=== PATIENT | male | born 1935 | race Caucasian/White ===

== ENCOUNTER → 2016-04-10 | Outpatient (CLI) | payer OTHER | LOC: MMPC 09:00 | DX: L21.8 Other seborrheic dermatitis (principal); H57.8 Other specified disorders of eye and adnexa; Z87.2 Personal history of diseases of the skin and subcutaneous tissue | CPT/HCPCS: 99212; G0463 ==

== ENCOUNTER → 2016-04-16 | Outpatient (CLI) | payer OTHER ==
[2016-04-16 10:09] LABS: BILIRUBIN,TOTAL 1.3 mg/dL (0.3-1.2); BUN/CREATININE RATIO 26.92 (6-20); CALCIUM 9.8 mg/dL (8.7-10.7); CREATININE 1.3 mg/dL (0.70-1.50); TOTAL PROTEIN 7.6 g/dL (6.1-8.0)
[2016-04-16 10:32] LABS: LDL CHOLESTEROL,CALCULATED 90.2 mg/dL; URIC ACID 5.6 mg/dl (3.8-8.5)
== END ==
LOC: LAB 09:42
PROVIDERS: ATTEND Internal Medicine
DX: E11.9 Type 2 diabetes mellitus without complications (principal); E78.5 Hyperlipidemia, unspecified; I10 Essential (primary) hypertension; Z12.5 Encounter for screening for malignant neoplasm of prostate
CPT/HCPCS: 36415; 80053; 80061; 82550; 84443; 84550; G0103

== ENCOUNTER → 2016-04-20 | Outpatient (CLI) | payer OTHER | LOC: MMPC 11:11 | PROVIDERS: ATTEND Internal Medicine | DX: E11.9 Type 2 diabetes mellitus without complications (principal); I10 Essential (primary) hypertension; R60.9 Edema, unspecified; E66.9 Obesity, unspecified | CPT/HCPCS: 83037; 99214; G0463 ==

== ENCOUNTER → 2016-07-17 | Outpatient (CLI) | payer OTHER ==
[2016-07-17 12:33] LABS: HEMOGLOBIN A1C 6.91 % (4.2-6.0)
[2016-07-17 13:52] LABS: CREATININE, URINE 54.2 MG/DL (15-500)
== END ==
LOC: LAB 12:08
PROVIDERS: ATTEND Internal Medicine
DX: E11.9 Type 2 diabetes mellitus without complications (principal)
CPT/HCPCS: 36415; 82043; 83036

== ENCOUNTER → 2016-07-20 | Outpatient (CLI) | payer OTHER | LOC: MMPC 11:11 | PROVIDERS: ATTEND Internal Medicine | DX: E11.9 Type 2 diabetes mellitus without complications (principal); D53.9 Nutritional anemia, unspecified; E66.9 Obesity, unspecified; E78.5 Hyperlipidemia, unspecified | CPT/HCPCS: 99214; G0463 ==

== ENCOUNTER → 2016-08-05 | Outpatient (CLI) | payer OTHER | LOC: MMPC 09:00 | DX: H10.32 Unspecified acute conjunctivitis, left eye (principal); L57.0 Actinic keratosis | CPT/HCPCS: 99213; G0463 ==

== ENCOUNTER → 2016-10-14 | Outpatient (CLI) | payer OTHER ==
[2016-10-14 11:29] LABS: BASOPHILS % (AUTO) 2.5 % (0-1); EOSINOPHILS # (AUTO) 0.36 10*3/UL; EOSINOPHILS % (AUTO) 4.5 % (0-8); HEMOGLOBIN 15.3 g/dL (14.0-18.0); MEAN CORPUSCULAR HEMOGLOBIN 34.6 PG (27-31); MEAN CORPUSCULAR HGB CONC 34.8 g/dL (33-37); MEAN CORPUSCULAR VOLUME 99.5 FL (80-90); MEAN PLATELET VOLUME 10.9 FL (7.4-12.2); MONOCYTES # (AUTO) 0.59 10*3/UL (0.3-0.8); MONOCYTES % (AUTO) 7.4 % (5-15); NEUTROPHILS # (AUTO) 5.42 10*3/UL; NEUTROPHILS % (AUTO) 67.7 % (50-80); RED BLOOD COUNT 4.42 10^6/uL (4.70-6.10)
[2016-10-14 11:34] LABS: PLATELET MORPHOLOGY COMMENT NORMAL MORPHOLOGY (NORM); RBC MORPHOLOGY COMMENT NORMAL MORPHOLOGY (NORM); WBC MORPHOLOGY COMMENT NORMAL MORPHOLOGY (NORM)
[2016-10-14 11:36] LABS: BUN/CREATININE RATIO 24.61 (6-20); CALCIUM 10.3 mg/dL (8.7-10.7); CHOL/HDL RATIO 3.44 RATIO (0-4.0); LDL CHOLESTEROL,CALCULATED 106.8 mg/dL; SERUM ALBUMIN 4.3 g/dL (3.5-4.8)
[2016-10-14 11:48] LABS: HEMOGLOBIN A1C 7.75 % (4.2-6.0)
[2016-10-14 13:06] LABS: CREATININE, URINE 116.4 MG/DL (15-500)
== END ==
LOC: LAB 11:04
PROVIDERS: ATTEND Internal Medicine
DX: E11.9 Type 2 diabetes mellitus without complications (principal); E78.5 Hyperlipidemia, unspecified; D53.9 Nutritional anemia, unspecified; E66.9 Obesity, unspecified; Z12.5 Encounter for screening for malignant neoplasm of prostate
CPT/HCPCS: 36415; 80053; 80061; 82043; 82550; 83036; 84443; 85025; G0103